=== PATIENT | male | born 1945 | race Caucasian/White ===

== ENCOUNTER 2016-11-25 07:17 | Day surgery (SDC) | payer MEDICARE, OTHER ==
[~2016-11-25] VITALS: Ht 189.2 cm; Wt 130.7 kg
[~2016-11-25 07:17] MED LIST: ACET-2723 PO; ASPI-557 PO; ATOR20TA59 PO; BENA1TAB72 PO; BENA20TA3 PO; CHOL100018 PO; LIDOCAINE 1% (10mg/ml) 2ml SDV INJ ONE; LR 1,000 ML IV SCH; RIVA20TA PO; SPIR25TA4 PO; UBID200C13 PO; VITA0.4T2 PO
--- OUTSIDE RECORDS SUMMARY | 2016-11-25 07:25 | XMS REPORT ---
Author Author [facility], [facility] - Organization Unknown Address Unknown Phone Unavailable Allergies, Adverse Reactions, Alerts * IV Contrast causes Urticaria (hives). * No Latex Allergy. * No Known Food Allergies. Problems * Fatigue* Status:Resolved. * Pain* Status:Active. Procedures No relevant procedures performed. Medication It is the responsibility of the patient or patient client services representative to confirm the list of medications with either the patient's personal care provider or the patient's follow-up care provider to ensure the patient has an appropriate list of medications to take at home. Discharge medications* amLODIPine 5 mg Tablet, Ordered By: Zarina Zaman Directions: 1 tablet oral twice a day * aspirin 81 mg Tablet, Chewable, Ordered By: Zarina Zaman Directions: 1 tablet oral daily * atorvastatin 40 mg Tablet, Ordered By: Zarina Zaman Directions: 0.5 tablet oral daily at bedtime * benazepril 20 mg Tablet, Ordered By: Zarina Zaman Directions: 1 tablet oral daily at bedtime * benazepril-hydrochlorothiazide 20 mg-12.5 mg Tablet, Ordered By: Zarina Zaman Directions: 1 tablet oral daily * coenzyme Q10 (CoQ-10) 100 mg Capsule, Ordered By: Zarina Zaman Directions: 2 capsule oral daily * spironolactone 25 mg Tablet, Ordered By: Zarina Zaman Directions: 1 tablet oral daily * Super-B comples bedtime ORAL DAILY LAST TAKEN 03-13-131999 * warfarin 7.5 mg Tablet, Ordered By: Zarina Zaman Directions: 1 tablet oral daily Additional Instructions: TAKES 5 MG ON WEDNESDAY * warfarin 5 mg Tablet, Ordered By: Zarina Zaman Directions: 1 tablet oral every Wednesday * amiodarone 200 mg Tablet, Ordered By: Zarina Zaman Directions: 1 tablet oral twice a day Stopped medications* None Results LAB--BEDSIDE TESTING from 03/14/2013 8:16 AMActivated Clotting Time NPT 164 secs H (100-146 secs) LAB--BEDSIDE TESTING from 03/14/2013 9:08 AMActivated Clotting Time NPT 329 secs H (100-146 secs) LAB--BEDSIDE TESTING from 03/14/2013 9:25 AMActivated Clotting Time NPT 329 secs H (100-146 secs) LAB--BEDSIDE TESTING from 03/14/2013 10:09 AMActivated Clotting Time NPT 309 secs H (100-146 secs) LAB--BEDSIDE TESTING from 03/14/2013 10:46 AMActivated Clotting Time NPT 314 secs H (100-146 secs) LAB--BEDSIDE TESTING from 03/14/2013 11:24 AMActivated Clotting Time NPT 294 secs H (100-146 secs) LAB--BEDSIDE TESTING from 03/14/2013 11:48 AMActivated Clotting Time NPT 184 secs H (100-146 secs) LAB--BLOOD BANK from 03/14/2013 6:12 AMABO and Rh A POS Antibody Screen (Indirect Kaden) NEG LAB--CHEMISTRY from 03/14/2013 6:12 AMAnion Gap 9 (3-20 ) BUN 22 mg/dL H (4-20 mg/dL) Calcium 9.4 mg/dL (8.6-10.0 mg/dL) Chloride 103 mEq/L (99-109 mEq/L) CO2 26 mEq/L (22-32 mEq/L) Creatinine 1.00 mg/dL (0.64-1.27 mg/dL) eGFR >60 (>60- ) Glucose 109 mg/dL H (70-100 mg/dL) Potassium 4.1 mEq/L (3.6-5.1 mEq/L) Sodium 138 mEq/L (136-144 mEq/L) LAB--COAG STUDIES from 03/14/2013 6:12 AMINR 2.7 H (0.9-1.2 ) LAB--COAG STUDIES from 03/15/2013 6:28 AMINR 2.8 H (0.9-1.2 ) LAB--HEMATOLOGY from 03/14/2013 6:12 AMAbsolute Basophils 0.05 THOUS (0.00-0.20 THOUS) Absolute Eosinophils 0.36 THOUS (0.00-0.50 THOUS) Absolute Lymphocytes 1.78 THOUS (0.80-3.30 THOUS) Absolute Monocytes 0.67 THOUS (0.30-1.00 THOUS) Absolute Neutrophils 5.77 THOUS (1.90-7.00 THOUS) HCT 46.0 % (42.0-52.0 %) HGB 15.4 g/dl (14.0-18.0 g/dl) MCH 31.6 pg (27.0-32.0 pg) MCHC 33.5 g/dL (32.0-36.0 g/dL) MCV 94.5 fL (82.0-99.0 fL) MPV 10.7 fL (9.4-12.3 fL) Platelet Count 195 K/uL (150-400 K/uL) RBC 4.87 M/uL (4.60-6.20 M/uL) RDW 13.5 % (11.5-14.5 %) WBC 8.7 K/uL (4.8-10.8 K/uL) Basophils 1 % (0-2 %) Eosinophils 4 % (0-4 %) Immature Granulocytes 0.2 % (0.0-1.0 %) Lymphocytes 21 % (20-46 %) Monocytes 8 % (4-11 %) Nucleated RBC Automated 0.0 /100 WBC (0 /100 WBC) Neutrophils 67 % (51-75 %)
--- OUTSIDE RECORDS SUMMARY | 2016-11-25 07:25 | XMS REPORT | Continuity of Care Document ---
Author Author [facility] Organization [facility] Address Unknown Phone Unavailable Allergies Active Description Code Type Severity Reaction Onset Reported/Identified Relationship to Patient Clinical Status Yes No Known Allergies Drug Allergy N/A N/A 03/13/2013 Yes No Known Drug Allergies Drug Allergy N/A N/A 03/13/2013 Yes No Known Food Allergies Food Allergy N/A N/A 03/13/2013 Yes IV Contrast Drug Allergy N/A Urticaria (hives) 03/14/2013 Medications Problems Date Dx Coded Attending Type Code Diagnosis Diagnosed By 03/14/2013 Gee Huffman MD Final 272.4 HYPERLIPIDEMIA NEC NOS 03/14/2013 Gee Huffman MD Final 327.23 OBSTRUCTIVE SLEEP APNEA 03/14/2013 Gee Huffman MD Final 401.9 HYPERTENSION NOS 03/14/2013 Gee Huffman MD Final 414.00 COR -GRAFT TYPE NOS 03/14/2013 Gee Huffman MD Final 427.31 ATRIAL FIBRILLATION Procedures Results Encounters ACCT No. Visit Date/Time Discharge Status Pt. Type Provider Facility Loc./Unit Complaint [id number] 03/14/2013 05:42:00 2012 12:29:00 DIS Outpatient Gee Huffman MD Via [address]
--- OUTSIDE RECORDS SUMMARY | 2016-11-25 07:25 | XMS REPORT | Continuity of Care Document ---
Author Author [facility] Organization [facility] Address Unknown Phone Unavailable Support Name Relationship Address Phone MARVIN RODAS MD Caregiver [address] [facility] [address] [place] [address] Unavailable MARVIN RODAS MD Caregiver [address] [facility] [address] [place] [address] Unavailable DEJA CARO Next Of Kin [address] [place], [place] [id number] Insurance Providers Guarantor Dylon Caro Address [address] [place] [address] Email [email or web address] Payer Medicare Policy Number [id number] Subscriber's Name Dylon Caro Relationship 18 Self Payer Other A Insurance Policy Number [id number] Subscriber's Name Dylon Caro Relationship 18 Self Advance Directives Directive Response Recorded Date/Time Ordered Resuscitation Status Full Code 03/27/16 2:45pm Resuscitation Documents on File No 03/30/16 7:07am DPOA for Healthcare Only Yes 03/30/16 7:07am Problems Active Problems Medical Problem Onset Date Status Right hand laceration Unknown Acute Medications Current Home Medications Medication Dose Units Route Directions Days Qty Instructions Start Date Acetaminophen (Tylenol Extra Strength) 500 Mg Tablet 1-2 Tab Oral Every 6 Hours as needed for Pain/Fever 03/27/16 Aspirin (Aspir 81) 81 Mg Tablet. 1 Tab Oral Daily 03/27/16 Aspirin 81 Mg Tab.chew 1 Tab Oral Daily 03/27/16 Atorvastatin Calcium 20 Mg Tablet 1 Tab Oral Bedtime 03/27/16 Benazepril Hcl 20 Mg Tablet 1 Tab Oral Bedtime 03/27/16 Benazepril/Hydrochlorothiazide (Lotensin Hct 20-12.5 Mg Tablet) 1 Each Tablet 1 Tab Oral Daily 03/27/16 Cholecalciferol (Vitamin D3) 1,000 Unit Tablet 1 Tab Oral Daily 90 Tablet 03/27/16 Rivaroxaban (Xarelto) 20 Mg Tablet 1 Tab Oral Daily 30 Tablet 03/27 Spironolactone 25 Mg Tablet 25 Mg Oral Daily 03/27/16 Ubidecarenone (Coenzyme Q10) 200 Mg Capsule 1 Cap Oral Daily 05/05 Vitamin B Complex/Folic Acid (Ra Balanced B-100 Tablet) 0.4 Mg Tablet 1 Tab Oral Daily 03/27/16 Social History Social History Problem Response Recorded Date/Time Onset Date Status Chewing Tobacco Status No 10/29/2013 6:39pm Not Applicable Not Applicable Hx Substance Use No 03/27/2016 2:31pm Not Applicable Not Applicable Hx Alcohol Use Y RARE 03/27/2016 2:31pm Not Applicable Not Applicable Has the pt used tobacco in the last 12 months No 03/27/2016 2:31pm Not Applicable Not Applicable Query Response Start Date Stop Date Smoking Status Former smoker Hospital Discharge Instructions No hospital discharge instructions. Plan of Care Discharge Date 03/30/16 9:20am Prescriptions See Medication Section Functional Status Query Response Date Recorded Ability to complete ADL's impeded by No change March 30, 2016 7:07am Allergies, Adverse Reactions, Alerts No known allergies. Immunizations Query Response on File Recorded Date/Time Hx Influenza Vaccination No 03/27/16 2:31pm Hx Pneumococcal Vaccination No 03/27/16 2:31pm Hx Tetanus, Diptheria, Pertussis N MORE THAN 5 YEARS 10/29/13 6:39pm Hx Influenza Vaccination No 03/27/16 2:31pm Hx Tetanus, Diptheria, Pertussis N MORE THAN 5 YEARS 10/29/13 6:39pm Vital Signs Acute Vital Signs Vital Response Date/Time Temperature (Fahrenheit) 96.9 deg F (96.8 - 99.1) 03/30/2016 8:24am Temperature (Calculated Celsius) 36.06043 degrees C (36.0 - 37.3) 03/30/2016 8:24am Temperature Source Temporal 03/30/2016 8:24am Pulse Rate (adult) 56 bpm (60 - 100) 03/30/2016 8:56am Respiratory Rate 16 breaths/min (10 - 20) 03/30/2016 8:56am O2 Sat by Pulse Oximetry 91 % (90 - 100) 03/30/2016 8:56am Oxygen Delivery Method Room Air 03/30/2016 8:56am Oxygen Flow Rate 6.00 L/min 03/30/2016 8:24am Blood Pressure 142/65 mm Hg 03/30/2016 8:56am Blood Pressure Source Automatic Cuff 03/30/2016 8:56am Height (Feet) 6 feet 03/30/2016 6:41am Height (Inches) 3.00 inches 03/30/2016 6:41am Weight (Kilograms) 127.000 kg 03/30/2016 6:41am Body Mass Index (BMI) 35.0 03/30/2016 6:41am Results No known relevant diagnostic tests, laboratory data and/or discharge summary. Procedures Procedure Status Date Provider(s) Colonoscopy with polypectomy and biopsy Completed 03/30/16 MARVIN RODAS MD Encounters Encounter Location Arrival/Admit Date Discharge/Depart Date Attending Provider Departed Surgical Day Care [facility] 03/30/16 6:22am 03/30/16 9: 20am MARVIN RODAS MD
[2016-11-25 07:32] VITALS: Ht 189.2 cm; Wt 130.7 kg
[2016-11-25 07:33] VITALS: BP 183/88; PULSE 71; RESP 14; TEMP 97.9; O2SAT 94
[2016-11-25] MEDS ORDERED: LIDOCAINE 1%/EPI 1:100,000 20ml MDV ONE (07:33)
[2016-11-25 08:00] LABS: ANION GAP 15 MEQ/L (5-15); BUN/CREATININE RATIO 27 RATIO (6-26); CALCIUM 9.6 MG/DL (8.4-10.2); CHLORIDE 104 MEQ/L (98-107); CO2 - CARBON DIOXIDE 25 MEQ/L (22-30); GLOMERULAR FILTRATION RATE 73; GLUCOSE 123 MG/DL (75-110); POTASSIUM 4.4 MEQ/L (3.6-5); SODIUM 144 MEQ/L (134-144)
[2016-11-25] MEDS ORDERED: BENA1TAB18 PO (08:00)
[2016-11-25] MEDS ORDERED: UBID100C10 PO (08:00)
[2016-11-25] MEDS ORDERED: CHOL200026 PO (08:00)
[2016-11-25] MEDS ORDERED: VITA1TAB29 PO (08:00)
[2016-11-25] MEDS ORDERED: AMLO5TAB2 PO (08:00)
[2016-11-25] MEDS ORDERED: RIVA20TA PO (08:00)
[2016-11-25] MEDS ORDERED: SPIR25TA4 PO (08:00)
[2016-11-25] MEDS ORDERED: ATOR20TA59 PO (08:00)
[2016-11-25] MEDS ORDERED: BENA20TA3 PO (08:00)
--- NOTE | 2016-11-25 08:28 | ANESPREOP ---
Anesthesia Record Date and Time DATE: 11/25/16 TIME: 08:24 Proposed Surgical Procedure BILATERAL UPPER BLEPHAROPLASTY NPO since: mn. Chewing gum this morning Allergies: Coded Allergies: No Known Allergies (Unverified , 11/24/16) Ht/Wt/BMI Height: 6 ' 2.50 " Weight: 130.700 kg BMI: 36.5 kg/m2 Vital Signs Date Time Temp Pulse Resp B/P Pulse Ox O2 Delivery O2 Flow Rate FiO2 11/25/16 07:33 97.9 71 14 183/88 94 Room Air Medications Inpatient Medications Current Medications Medications (Trade) Dose Ordered Sig/Alejandro Start Time Stop Time Status Last Admin Dose Admin Lactated Ringer's (Lactated Ringers) 1,000 ml @ 50 mls/hr Q20H 11/25/16 07:00 Amlodipine Besylate (Amlodipine Besylate) 5 Mg Tablet, 10 MG PO DAILY, (Reported ) Last Taken: on 11/24/16 Atorvastatin Calcium (Atorvastatin Calcium) Unknown Strength Tablet, Unknown Dose PO HS, (Reported) Last Taken: on 11/24/16 B Complex with Vitamin C (Super B Complex-Vitamin C ) 1 Each Tablet, 1 TAB PO DAILY, (Reported) Last Taken: on 11/24/16 Benazepril HCl (Benazepril HCl) 20 Mg Tablet, 1 TAB PO HS, (Reported) Last Taken: on 11/24/16 Benazepril/Hydrochlorothiazide (Benazepril-Hctz 20- 12.5 mg Tab) 1 Each Tablet, 1 TAB PO DAILY, (Reported) Last Taken: on 11/24/16 Cholecalciferol (Vitamin D3) (Vitamin D-3) 2,000 Unit Capsule, 1 TAB PO DAILY, (Reported) Last Taken: on 11/24/16 Rivaroxaban (Xarelto) 20 Mg Tablet, 1 TAB PO DAILY, (Reported) Last Taken: on 11/21/16 Spironolactone (Spironolactone) 25 Mg Tablet, 25 MG PO DAILY, (Reported) Last Taken: on 11/24/16 Ubidecarenone (Coq-10) 100 Mg Capsule, 1 TAB PO DAILY, (Reported) Last Taken: on 11/24/16 Currently on Beta Yvonne: No Medical/Surgical History Anesthesia PMH: Reports: *ASHD (CAD s/p CABG x1 11 years ago), *Hypertension ( TAKES MEDS), COPD (pressumptive, smoked for 50 years), Cardiac Arrythmia ( history of A Fib. S/P cardioversion and ablation failed), Clotting Problems ( ON XARELTO), Obesity, Sleep Apnea, Denies: Anesthesia Reactions (NO AIRWAY ISSUES), Arthritis, Cancer, Glaucoma, Hepatitis, Malignant Hyperthermia, Rheumatic Fever # of Packs per Day: 0.1 # of Years: 60 Use Chewing Tobacco?: No Second Hand Exposure: No Alcohol Intake: none Past Surgical History Orthopedic Surgeries: No Abdominal Surgeries: No Genitourinary Surgeries: No Cardiac Surgeries: Yes - cabg x 1 per pt. cardioversion x 3 per pt; cardiac ablation x 2 Endocrine Surgeries: No Reproductive Surgeries: No Neurological Surgeries: No Ear Surgeries: No Nose Surgeries: No Throat Surgeries: Yes - TONSILLECTOMY Other Surgeries: Yes - COLONOSCOPY Anesthesia Adverse Reactions: FOUND none Family Hx of Anesthesia Advers: none Hx of Motion Sickness: No Pertinent Findings Laboratory Tests 11/25/16 07:40 EKG Rhythm: Atrial Fibrillation EKG Ectopy: PVC Physical Exam Respiratory: Bilat breath sounds equal, Lungs clear Cardiovascular: FOUND Irregularly irregular Airway Assessment Mallampati Score: II TMD: 3 Fingerbreadths Neck Extension: Fair Teeth: Partial Upper Dentures, Partial Lower Dentures Overall Assessment: May Be Diff Mask Vent. (obesity and IDRIS ), May Be Diff Intubation (obesity and IDRIS) ASA: 3 Plan Anesthesia Plan: MAC Discussion Discussed risks/options/alternatives of anesthesia and questions answered. Patient consents. Nursing pain assessment noted. Attestation Statement Prior to the delivery of any anesthetic medication, I examined the patient, developed the plan, obtained the patient's consent and discussed the risk and benefits of the procedure with the patient/guardian. MARVIN CHERRY CRNA Nov 25, 2016 08:27
[2016-11-25] MEDS ORDERED: CEFAZOLIN 1 GRAM INJECTION IV ONE (09:00)
[2016-11-25] MEDS ORDERED: FENTANYL 100mcg/2ml INJECTION ONE (09:26)
[2016-11-25] MEDS ORDERED: MIDAZOLAM 5mg/5ml INJECTION ONE (09:26)
[2016-11-25] MEDS ORDERED: KETAMINE 500mg/10ml INJECTION ONE (09:35)
[2016-11-25] MEDS ORDERED: MIDAZOLAM 2mg/2ml INJECTION ONE (10:02)
[2016-11-25 10:25] VITALS: BP 127/55; PULSE 76; RESP 16; TEMP 97.5; O2SAT 90
--- NOTE | 2016-11-25 10:25 | PDPROCED ---
Procedure Note Date 11/25/16 Procedure Name Bilateral upper blepharoplasty Procedure Detail Preop dx: Bilateral upper lid dermatochalasis, blepharochalasis with visual field defect Postop dx: Same Anesthesia: MAC EBL: Less than 15 ml Case: Clean Complications: None BERNY GRUBER MD Nov 25, 2016 10:25
[2016-11-25] MEDS ORDERED: HYDROCODONE/APAP 5 mg/325 mg TABLET PO PRN (10:30)
[2016-11-25] MEDS ORDERED: ONDANSETRON 4mg/2ml INJECTION IV PRN (10:30)
[2016-11-25] MEDS ORDERED: ATROPINE 1mg/10ml Syringe IV PRN (10:30)
[2016-11-25] MEDS ORDERED: ACET1TAB12 PO (10:37)
[2016-11-25] MEDS ORDERED: CEPH-583 PO (10:37)
[2016-11-25 10:40] VITALS: BP 110/52; PULSE 67; RESP 16; O2SAT 92
[2016-11-25 10:55] VITALS: BP 133/81; PULSE 63; RESP 16; O2SAT 93
[2016-11-25 11:10] VITALS: BP 155/67; PULSE 67; RESP 16; O2SAT 92
[2016-11-25 11:25] VITALS: BP 156/65; PULSE 62; RESP 16; O2SAT 92
--- NOTE | 2016-11-25 11:33 | ANESPO ---
Post-Op Note Date 11/25/16 Time: 11:30 Status Pt Participated in Evaluation: Pt participated in person Vital Signs Date Time Temp Pulse Resp B/P Pulse Ox O2 Delivery O2 Flow Rate FiO2 11/25/16 10:55 63 16 133/81 93 Room Air 11/25/16 10:25 97.5 2.00 Respiratory Function: Airway patent, Regular respirations Cardiovascular Function: Regular pulse Mental Status: Alert/oriented Pain Level Intensity: 0 Hydration: Taking po fluids Complications during Recovery None apparent Follow-Up Instructions Instructions Per Surgeon MARVIN CHERRY CRNA Nov 25, 2016 11:33
--- NOTE | 2016-11-25 20:55 | OPNOTEF ---
DATE OF SURGERY November 25, 2016 SURGEON Valerie Mohr MD PREOPERATIVE DIAGNOSIS Dermatochalasis, blepharochalasis bilateral upper lids, right more so than left , with functional field deficits. POSTOPERATIVE DIAGNOSIS Dermatochalasis, blepharochalasis bilateral upper lids, right more so than left , with functional field deficits. OPERATION Bilateral upper blepharoplasty. ANESTHESIA MAC. INDICATIONS The patient is a 71-year-old male who presented with a complaint of excess upper eyelid skin affecting his vision. The patient stated that his right lid is worse than his left. He has trouble seeing while reading and watching television. Also, he has to lift his eyes or tilt his head back to be able to see. He has had drooping eyelids for many years but it has progressively gotten worse. He denies any allergies and states that several other family members have the same issue. He had a visual field by Dr. Stahl which revealed OD more than OS chronic boggy edema and dermatochalasis. He stated that he had a severe problem OD with his vision being obstructed. Daily routines and especially driving are being negatively impacted. On exam, he had marked excess skin of the upper eyelids, right greater than left, with dependent fluid and excess skin completely covering the lateral one-third of the right eye. He has bilateral brow ptosis, right greater than left, with lids touching the lashes bilaterally on forward gaze. In detailed discussion with the patient preoperatively, the risks, benefits, alternatives of upper blepharoplasty were reviewed including, although not limited to, bleeding, infection, poor or keloid scarring, residual and/or recurrent skin excess, residual asymmetry, visual changes including blindness, development or exacerbation of dry eye syndrome. The patient understood and wished to proceed. Of note, his medical clearance was obtained from Dr. Pierre, who stated that he could be off his Xarelto without a Lovenox bridge. NARRATIVE OF PROCEDURE The patient was marked preoperatively and brought to the operating room where, after suitable IV sedation, the patient was prepped and draped in the usual sterile manner. The upper eyelids were then infiltrated with 1% lidocaine with epinephrine. After strict wait for hemostasis, the right upper lid incision was made sharply and the excess skin was excised and handed off. Hemostasis throughout was obtained using the needle-tip cautery. The orbital septum was entered sharply and the fat in the medial and central compartments was teased, clamped, excised and handed off. The wound was again inspected for hemostasis and was then closed in one layer using a running subcuticular pullout suture of 5-0 nylon and then interrupted 6-0 nylon as needed for improved closure. Attention was turned to the left upper lid where identical dissection, resection and closure was performed. Benzoin and Steri-Strips were applied as well as bacitracin ophthalmic ointment into the eye itself. Ice packs were placed and the patient was brought to the recovery room in stable condition. Estimated blood loss less than 15 mL. The case was clean. There were no specimens. MTDD
== END 2016-11-25 11:40 | disposition home or self-care (01) ==
LOC: SCU 07:17
PROVIDERS: ATTEND Surgery Plastic and Reconstructive Surgery
DX: H02.834 Dermatochalasis of left upper eyelid (principal); H02.831 Dermatochalasis of right upper eyelid; H02.34 Blepharochalasis left upper eyelid; H02.31 Blepharochalasis right upper eyelid; I48.91 Unspecified atrial fibrillation; I25.10 Atherosclerotic heart disease of native coronary artery without angina pectoris; I10 Essential (primary) hypertension; G47.33 Obstructive sleep apnea (adult) (pediatric); Z99.89 Dependence on other enabling machines and devices; F17.210 Nicotine dependence, cigarettes, uncomplicated; Z79.02 Long term (current) use of antithrombotics/antiplatelets; Z79.82 Long term (current) use of aspirin; Z79.899 Other long term (current) drug therapy
CPT/HCPCS: 15823; 36415; 80048; J0690; J2250; J3010